=== PATIENT | male | born 1970 | race Caucasian/White ===

== ENCOUNTER 2018-07-22 05:32 | Outpatient (CLI) | payer MEDICARE, MEDICAID ==
[~2018-07-22] VITALS: Ht 170.2 cm; Wt 104.3 kg
[~2018-07-22 05:32] MED LIST: AGM875T PO; AMOX-355 PO; BENA1TAB12; BENAZ; CODE-54; DESV50TA PO; DOXY100C2 PO; ESCI20TA2; HYDR-707 PO; INSU100V6; METFORMIN; METO25TA PO; NEOM10DR6 RIGHT EAR; PROP1TAB77; SMV10T
[2018-07-22] MEDS ORDERED: ASPI-586 PO (10:57)
[2018-07-22] MEDS ORDERED: CYCL10TA9 PO (11:19)
[2018-07-22] MEDS ORDERED: SIMV20TA3 PO (11:19)
[2018-07-22] MEDS ORDERED: METO50TA15 PO (11:19)
[2018-07-22] MEDS ORDERED: PREG100C PO (11:19)
[2018-07-22] MEDS ORDERED: LISI1TAB8 PO (11:19)
[2018-07-22] MEDS ORDERED: HYDR-3820 PO (11:19)
[2018-07-22] MEDS ORDERED: INSU100V6 SQ (11:19)
[2018-07-22] MEDS ORDERED: METF-399 PO (11:19)
[2018-07-22] MEDS ORDERED: NF-ESOM40C PO (11:19)
[2018-07-22] MEDS ORDERED: BUSP10TA95 PO (11:19)
[2018-07-22] MEDS ORDERED: INSU100V16 SQ (11:19)
[2018-07-22] MEDS ORDERED: ALPR1TAB2 PO (11:19)
[2018-07-22] MEDS ORDERED: PANT40TA3 PO (11:19)
== END 2018-07-22 11:20 | disposition home or self-care (01) ==
LOC: PREOP 05:32
PROVIDERS: ATTEND Surgery
DX: Z01.818 Encounter for other preprocedural examination (principal)

== ENCOUNTER 2018-07-28 07:53 | Day surgery (SDC) | payer MEDICARE, MEDICAID ==
[~2018-07-28] VITALS: Ht 170.2 cm; Wt 104.3 kg
[~2018-07-28 07:53] MED LIST changes: +ALPR1TAB2 PO; +ASPI-586 PO; +BUSP10TA95 PO; +CYCL10TA9 PO; +HYDR-3820 PO; +INSU100V16 SQ; +INSU100V6 SQ; +LISI1TAB8 PO; +METF-399 PO; +METO50TA15 PO; +NF-ESOM40C PO; +PANT40TA3 PO; +PREG100C PO; +SIMV20TA3 PO
[2018-07-28] MEDS ORDERED: LACTATED RINGERS 1,000 ML IV ONE (08:04)
[2018-07-28] MEDS ORDERED: LACTATED RINGERS 1,000 ML IV STA (08:11)
[2018-07-28] MEDS ORDERED: HURRICAINE EXT TUBE (BENZOCAINE) XX PRN (08:15)
[2018-07-28 08:31] VITALS: BP 163/98
--- NOTE | 2018-07-28 08:33 | Progress Note-Pre Operative ---
Pre-Operative Progress Note H&P Reviewed The H&P was reviewed, patient examined and no changes noted. Date Seen by Provider: Jul 28, 2018 Time Seen by Provider: 08:32 Date H&P Reviewed: Jul 28, 2018 Time H&P Reviewed: 08:32 Pre-Operative Diagnosis: gerd, blood in stools, family hx colon cancer ANDERSON TELLEZ DO Jul 28, 2018 08:33
[2018-07-28] MEDS ORDERED: HURRICAINE EXT TUBE (BENZOCAINE) ONE (08:37)
[2018-07-28] MEDS ORDERED: MIDAZOLAM 2 MG/2 ML (VERSED) VIAL ONE (08:48)
[2018-07-28] MEDS ORDERED: PROPOFOL INJECTION 50 ML IV ONE (08:48)
[2018-07-28] MEDS ORDERED: proPOfol 200 MG/20 ML (DIPRIVAN) VIAL IV ONE (09:31)
[2018-07-28] MEDS ORDERED: ONDANSETRON 4 MG/2 ML (SDV) Z0FRAN ONE (09:58)
[2018-07-28 10:00] VITALS: BP 159/86
--- NOTE | 2018-07-28 10:05 | Progress Note-Post Operative ---
Post-Operative Progess Note Surgeon (s)/Security Architect (s) Surgeon ANDERSON TELLEZ DO Security Architect: na Pre-Operative Diagnosis gerd, blood in stools, family hx colon cancer Post-Operative Diagnosis small hiatal hernia, food bolus in stomach, colon polyps, possible avm colon Procedure & Operative Findings Date of Procedure 07/28/18 Procedure Performed/Findings esophagogastroscopy c biopsies and colonoscopy c cold biopsy and hot biopsy and hot bx polypectomy x 2 rectal polyps Anesthesia Type per mda Estimated Blood Loss Estimated blood loss (mL): scant Specimens/Packing Specimens Removed antrum distal esoph, ascending colon x 2 and rectal polyps x 2 ANDERSON TELLEZ DO Jul 28, 2018 10:05
--- NOTE | 2018-07-28 10:06 | Discharge Inst-Simple/Standard ---
Discharge Inst-Standard Patient Instructions/Follow Up Plan of Care/Instructions/FU: 2 weeks Shilpi Activity as Tolerated: Yes Discharge Diet: Regular Diet (small frequent meals) ANDERSON TELLEZ DO Jul 28, 2018 10:06
[2018-07-28 10:27] VITALS: BP 159/86
--- NOTE | 2018-07-28 14:10 | Anesthesia-General Post-Op ---
MAC Patient Condition Mental Status/LOC: Same as Preop Cardiovascular: Satisfactory Nausea/Vomiting: Absent Respiratory: Satisfactory Pain: Controlled Complications: Absent Post Op Complications Complications None Follow Up Care/Instructions Patient Instructions None needed. Anesthesiology Discharge Order Discharge Order Patient is doing well, no complaints, stable vital signs, no apparent adverse anesthesia problems. No complications reported per nursing. TRELL BENJAMIN CRNA Jul 28, 2018 14:10
--- NOTE | 2018-07-28 15:39 | OPERATIVE REPORT ---
DATE OF SERVICE: 07/28/2018 PREOPERATIVE DIAGNOSES: Gastroesophageal reflux disease, blood in stools, family history of colon cancer. POSTOPERATIVE DIAGNOSIS: Small hiatal hernia, food bolus in the stomach, colon polyps, possible arteriovenous malformation to the colon. SURGEON: Anderson Dobbins DO. ANESTHESIA: Per MDA. ESTIMATED BLOOD LOSS: Scant. COMPLICATIONS: None. PROCEDURE PERFORMED: Esophagogastroscopy with biopsies and colonoscopy with cold biopsy and hot biopsy of ascending colon and hot biopsy polypectomy x2, rectal polyps. INDICATIONS: The patient is a 47-year-old male with a family history of colon cancer and some blood in the stool and increasing reflux. He understands the risks and benefits of procedure and wished to proceed with procedure. Consent was signed in the chart. DESCRIPTION OF PROCEDURE: The patient was taken to the endoscopy suite, placed in left lateral recumbent position. Timeout was performed. Scope was inserted in mouth, down the esophagus and into the stomach. Food bolus in the stomach was present, which was down the antrum which was unable to be removed go into the duodenum. Copious amounts of irrigation and suction was performed, still unable to move the food bolus at this point. The patient had biopsy antrum was obtained. Scope was retroflexed noting a small hiatal hernia. No other pathology. Scope was returned to its normal position, slowly withdrawn to the distal esophagus, which biopsy of the distal esophagus was obtained. Scope was slowly retracted back to completely remove, noting no other pathology. Digital rectal examination was performed. There were no palpable polyps, masses or ulcerations. Scope was inserted in the rectum and advanced all the way to the cecum with minimal difficulty. Prep was adequate with irrigation and suction. Scope was then slowly retracted back. There were no polyps, masses or ulcerations within the cecum. Within the ascending colon, there were 2 small areas that appeared to be possible AVMs. These were biopsied, one was cold biopsy, but it was very small; the other one, hot biopsy was performed. Scope was continuously slowly retracted back. There were no polyps, mass or ulcerations within the remainder of the ascending colon, transverse colon, descending colon and sigmoid colon. There were two small polyps, which hot biopsy polypectomies were performed. Scope was also retroflexed noting no other pathology. Scope was returned to its normal position, slowly withdrawn until completely removed. RECOMMENDATIONS: The patient will follow up in the office in 2 weeks to discuss pathology results. The patient will also look at medications and see if Carafate may make some other changes in terms of his PPIs. The patient needs repeat colonoscopy in 5 years unless he has persistent bleeding, which would repeat at that time or has any other symptoms relating to the colon, consider repeating colonoscopy. Otherwise, due to family history of colon cancer, we would recommend repeat in 5 years. Job ID: [id number] DocumentID: [id number] Dictated Date: 07/28/2018 10:10:09 Asbestos Hazard Abatement Worker Date: 07/28/2018 15:38:23 Dictated By: ANDERSON DOBBINS DO
== END 2018-07-28 10:30 | disposition home or self-care (01) ==
LOC: ENDO 07:53
PROVIDERS: ATTEND Surgery
DX: K92.1 Melena (principal); K63.5 Polyp of colon; K62.1 Rectal polyp; K21.9 Gastro-esophageal reflux disease without esophagitis; K44.9 Diaphragmatic hernia without obstruction or gangrene; E11.9 Type 2 diabetes mellitus without complications; I10 Essential (primary) hypertension; J44.9 Chronic obstructive pulmonary disease, unspecified; Z80.0 Family history of malignant neoplasm of digestive organs; Z87.891 Personal history of nicotine dependence; Z79.82 Long term (current) use of aspirin; Z79.84 Long term (current) use of oral hypoglycemic drugs; Z79.899 Other long term (current) drug therapy
CPT/HCPCS: 82962; 88305

== ENCOUNTER → 2018-08-25 | Outpatient (CLI) | payer MEDICARE, MEDICAID ==
--- NOTE | 2018-08-25 20:06 | Diagnostic Imaging Report ---
INDICATION: Gastroparesis Patient ingested 1 mCi technetium 99m sulfur colloid labeled to a test meal. Imaging over the abdomen was then performed. Time of half emptying of the test meal was calculated approximately 109 minutes. This is slightly delayed. Normal value is typically 30-90 minutes. IMPRESSION: Slight delay in gastric emptying. Dictated by: Dictated on workstation # [id number]
== END ==
LOC: CARD 06:38
PROVIDERS: ATTEND Surgery
DX: K31.84 Gastroparesis (principal)
CPT/HCPCS: 78264

== ENCOUNTER → 2018-12-27 | Emergency (ER) | payer MEDICARE, MEDICAID ==
[~2018-12-27] VITALS: Ht 170.2 cm; Wt 129.3 kg
[~2018-12-27] MED LIST changes: +AMOX500C2 PO; +AMOXICILLIN 500 MG (POLYMOX) CAP PO STA; +RX-HYDROCODONE/APAP 5/325 MG #4 TAB PK PO PRN
--- NOTE | 2018-12-27 21:03 | ED EENT ---
History of Present Illness General Chief Complaint: Oral/Throat Problems Stated Complaint: JAW PAIN/NO INJ Nursing Triage Note: pt arrived pov with family with c/o mouth pain. pt states he has paperwork from his pcp that states it is medically necessary he has all his teeth pulled. He doesn't have the money to pull them and so he keeps getting recurrent infections. Pt is very irritable. Source: patient Exam Limitations: no limitations History of Present Illness Date Seen by Provider: Dec 27, 2018 Time Seen by Provider: 20:57 Initial Comments To ER with reports of mouth pain for many years. He states that he has a paper from his primary care provider stating that his teeth should be cold but he cannot have this done because he owes [facility] Friday and they won't see them know a dentist will see him. He was helping to have his teeth removed here in the emergency room tonight. Timing/Duration: abrupt Severity: moderate Location: dental Prearrival Treatment: no prearrival treatment Associated Symptoms: denies symptoms Allergies and Home Medications Allergies Coded Allergies: No Known Drug Allergies (Unverified , 07/22/18) Home Medications Alprazolam 1 Mg Tablet, 1 MG PO BID, (Reported) Amoxicillin 500 Mg Capsule, 500 MG PO TID Prescribed by: AUDELIA JOHNSON on 12/27/182101 Aspirin 81 Mg Tablet.dr, 81 MG PO DAILY, (Reported) Buspirone HCl 10 Mg Tablet, 10 MG PO DAILY, (Reported) Cyclobenzaprine HCl 10 Mg Tablet, 10 MG PO PRN, (Reported) Esomeprazole Magnesium 40 Mg Cap, 40 MG PO DAILY, (Reported) Hydrocodone/Acetaminophen 1 Each Tablet, 1 EACH PO TID PRN for PAIN-MODERATE, ( Reported) Insulin Aspart 100 Unit/1 Ml Susp, 30 UNIT SQ AC, (Reported) Insulin Glargine,Hum.rec.anlog 100 Unit/1 Ml Vial, 60 UNIT SQ BID, (Reported) Lisinopril/Hydrochlorothiazide 1 Each Tablet, 1 EACH PO DAILY, (Reported) Metformin HCl 1,000 Mg Tablet, 1,000 MG PO BID, (Reported) Metoprolol Tartrate 50 Mg Tablet, 50 MG PO BID, (Reported) Pantoprazole Sodium 40 Mg Tablet.dr, 40 MG PO DAILY, (Reported) Pregabalin 100 Mg Capsule, 100 MG PO TID, (Reported) Simvastatin 20 Mg Tablet, 20 MG PO HS, (Reported) Patient Home Medication List Home Medication List Reviewed: Yes Review of Systems Review of Systems Constitutional: see HPI Eyes: No Symptoms Reported Ears: No Symptoms Reported Nose: no symptoms reported Mouth: see HPI Throat: no symptoms reported Cardiovascular: no symptoms reported Musculoskeletal: no symptoms reported Past Waihtvl-Apzrus-Lstfsp Hx Patient Social History Former Smoker, Quit: Jul 22, 1997 Recent Foreign Travel: No Contact w/Someone Who Travel: No Recent Infectious Disease Expo: No Recent Hopitalizations: No Immunizations Up To Date Tetanus Booster (TDap): Unknown Date of Pneumonia Vaccine: Jun 21, 2011 Date of Influenza Vaccine: Jun 30, 2017 Seasonal Allergies Seasonal Allergies: Yes Past Medical History Orthopedic COPD Currently Using CPAP: No Currently Using BIPAP: No Hypertension Reproductive Disorders: No Sexually Transmitted Disease: No HIV/AIDS: No Diabetes, Insulin dep Adverse Reaction/Blood Tranf: No (N/A) Physical Exam Vital Signs Vital Signs - First Documented 12/27/18 20:48 Temp 99.0 Pulse 118 Resp 20 Pulse Ox 93 O2 Delivery Room Air Height, Weight, BMI Height: 5'7.00" Weight: 285lbs. 0.0oz. 129.342293yv; 36.0 BMI Method:Stated General Appearance: WD/WN, no apparent distress Eyes: bilateral eye normal inspection, bilateral eye PERRL, bilateral eye EOMI Ears: bilateral ear auricle normal, bilateral ear canal normal, bilateral ear TM normal Mouth/Throat: No maxillary swelling, No tonsillar swelling, No trismus, No uvula swelling; other (multiple carious eroded teeth.) Neck: non-tender, full range of motion Respiratory: no respiratory distress, no accessory muscle use Gastrointestinal: non tender, soft Neurologic/Psychiatric: alert, normal mood/affect, oriented x 3 Skin: normal color, warm/dry Progress/Results/Core Measures Results/Orders My Orders Orders - AUDELIA JOHNSON APRN Rx-Hydrocodone/Apap 5-325 Mg (Rx-Vicodin (12/27/18 21:00) Amoxicillin Capsule (Polymox Capsule) (12/27/18 20:56) Vital Signs/I&O 12/27/18 20:48 Temp 99.0 Pulse 118 Resp 20 B/P (MAP) Pulse Ox 93 O2 Delivery Room Air Departure Communication (Admissions) 2100-offered him pain medication and antibiotics and he states "see I told my sister we should never have come, nothing would get done". He was apparently hoping to have his teeth removed in the emergency room. Impression Primary Impression: Chronic dental pain Disposition: HOME, SELF-CARE Condition: Stable Departure-Patient Inst. Decision time for Depature: 21:02 Referrals: [facility]/ANA LILIA (PCP) Primary Care Physician KESHIA LEDEZMA (Family) Primary Care Physician Patient Instructions: Dental Pain Add. Discharge Instructions: 1. Follow-up with your doctor. Antibiotics and pain medication as directed. All discharge instructions reviewed with patient and/or family. Voiced understanding. Scripts Amoxicillin (Amoxicillin) 500 Mg Capsule 500 MG PO TID, #21 CAP . Prov: AUDELIA JOHNSON APRN 12/27/18 AUDELIA JOHNSON APRN Dec 27, 2018 21:03
[2018-12-27 21:25] VITALS: BP 140/90
== END | disposition home or self-care (01) ==
LOC: EDUNIT# 20:42 → ER 20:43
DX: K08.89 Other specified disorders of teeth and supporting structures (principal); G89.29 Other chronic pain; J44.9 Chronic obstructive pulmonary disease, unspecified; I10 Essential (primary) hypertension; E11.9 Type 2 diabetes mellitus without complications; Z79.82 Long term (current) use of aspirin; Z79.4 Long term (current) use of insulin; Z87.891 Personal history of nicotine dependence
CPT/HCPCS: 99283

== ENCOUNTER 2019-06-18 17:18 | Emergency (ER) | payer MEDICARE, MEDICAID ==
[~2019-06-18] VITALS: Ht 180 cm; Wt 127.0 kg
[~2019-06-18 17:18] MED LIST changes: -AMOXICILLIN 500 MG (POLYMOX) CAP PO STA; -RX-HYDROCODONE/APAP 5/325 MG #4 TAB PK PO PRN
--- NOTE | 2019-06-18 18:26 | ED General ---
General Chief Complaint: General Problems/Pain Stated Complaint: VOMITTING, HIP PAIN Nursing Triage Note: THE PT IS ASSISTED TO THE ROOM BY WHEELCHAIR. NO DISTRESS IS SEEN ON ARRIVAL. LOC IS NORMAL FOR THE PT. FAMILY STATES THAT THE HAS VOMITED SEVERAL TIMES. Nursing Sepsis Screen: No Definite Risk Source of Information: Patient Exam Limitations: No Limitations History of Present Illness Date Seen by Provider: Jun 18, 2019 Time Seen by Provider: 18:24 Initial Comments To ER by sister with reports of sore throat, headache, nausea/vomiting, and pain in the right hip. Symptoms ongoing since this morning, patient himself states that he just slept wrong on his hip and that's why it hurts. He is reportedly bipolar and has not been taking his medications according to his sister at the bedside. Timing/Duration: 1-2 Days Severity: Moderate Associated Systoms: No Cough, No Fever/Chills; Headaches Allergies and Home Medications Allergies Coded Allergies: No Known Drug Allergies (Unverified , 07/22/18) Home Medications Alprazolam 1 Mg Tablet, 1 MG PO BID, (Reported) Amoxicillin 500 Mg Capsule, 500 MG PO TID . Prescribed by: AUDELIA JOHNSON on 12/27/182116 Aspirin 81 Mg Tablet.dr, 81 MG PO DAILY, (Reported) Buspirone HCl 10 Mg Tablet, 10 MG PO DAILY, (Reported) Cyclobenzaprine HCl 10 Mg Tablet, 10 MG PO PRN, (Reported) Esomeprazole Magnesium 40 Mg Cap, 40 MG PO DAILY, (Reported) Hydrocodone/Acetaminophen 1 Each Tablet, 1 EACH PO TID PRN for PAIN-MODERATE, (Reported) Insulin Aspart 100 Unit/1 Ml Susp, 30 UNIT SQ AC, (Reported) Insulin Glargine,Hum.rec.anlog 100 Unit/1 Ml Vial, 60 UNIT SQ BID, (Reported) Lisinopril/Hydrochlorothiazide 1 Each Tablet, 1 EACH PO DAILY, (Reported) Metformin HCl 1,000 Mg Tablet, 1,000 MG PO BID, (Reported) Metoprolol Tartrate 50 Mg Tablet, 50 MG PO BID, (Reported) Pantoprazole Sodium 40 Mg Tablet.dr, 40 MG PO DAILY, (Reported) Pregabalin 100 Mg Capsule, 100 MG PO TID, (Reported) Simvastatin 20 Mg Tablet, 20 MG PO HS, (Reported) Patient Home Medication List Home Medication List Reviewed: Yes Review of Systems Review of Systems Constitutional: see HPI EENTM: see HPI, throat pain Respiratory: no symptoms reported Cardiovascular: no symptoms reported Gastrointestinal: nausea Genitourinary: no symptoms reported Musculoskeletal: no symptoms reported Skin: no symptoms reported Psychiatric/Neurological: No Symptoms Reported Hematologic/Lymphatic: No Symptoms Reported Immunological/Allergic: no symptoms reported Past Ngaotph-Fzwkmh-Llvloz Hx Patient Social History Former Smoker, Quit: Jul 22, 1997 Recent Foreign Travel: No Contact w/Someone Who Travel: No Recent Infectious Disease Expo: No Recent Hopitalizations: No Physical Abuse: No Sexual Abuse: No Mistreated: No Fear: No Immunizations Up To Date Tetanus Booster (TDap): Unknown Date of Pneumonia Vaccine: Jun 21, 2011 Date of Influenza Vaccine: Jun 30, 2017 Seasonal Allergies Seasonal Allergies: No Past Medical History Surgeries: No Orthopedic COPD Currently Using CPAP: No Currently Using BIPAP: No Cardiac: No Hypertension Reproductive Disorders: No Sexually Transmitted Disease: No HIV/AIDS: No Diabetes, Insulin dep Adverse Reaction/Blood Tranf: No (N/A) Physical Exam Vital Signs Vital Signs - First Documented 06/18/19 18:00 Temp 37.8 Pulse 112 Resp 18 B/P (MAP) 144/80 (101) Capillary Refill : Less Than 3 Seconds Height, Weight, BMI Height: 5'7.00" Weight: 285lbs. 0.0oz. 129.289617mm; 39.00 BMI Method:Stated General Appearance: No Apparent Distress, WD/WN, Chronically ill, Obese Eyes: Bilateral Eye Normal Inspection, Bilateral Eye PERRL, Bilateral Eye EOMI HEENT: PERRL/EOMI, TMs Normal, Other (poor dentition throughout the entire mouth) Neck: Full Range of Motion, Normal Inspection Respiratory: Lungs Clear, Normal Breath Sounds, No Accessory Muscle Use, No Respiratory Distress Cardiovascular: Regular Rate, Rhythm, Normal Peripheral Pulses Gastrointestinal: Non Tender, Soft Extremity: Normal Capillary Refill, Normal Inspection Neurologic/Psychiatric: Alert, Oriented x3, No Motor/Sensory Deficits Skin: Normal Color, Warm/Dry Progress/Results/Core Measures Suspected Sepsis Recent Fever Within 48 Hours: No Infection Criteria Present: None New/Unexplained Altered Menta: No Sepsis Screen: No Definite Risk SIRS Temperature: Pulse: 112 Respiratory Rate: 18 Laboratory Tests 06/18/19 18:38: White Blood Count 11.1H Blood Pressure 144 /80 Mean: 101 Laboratory Tests 06/18/19 18:38: Creatinine 1.35H, Platelet Count 228, Total Bilirubin 1.2H Results/Orders Lab Results Laboratory Tests Test 06/18/19 18:38 Range/Units White Blood Count 11.1 H 4.3-11.0 10^3/uL Red Blood Count 3.92 L 4.35-5.85 10^6/uL Hemoglobin 8.7 L 13.3-17.7 G/DL Hematocrit 30 L 40-54 % Mean Corpuscular Volume 76 L 80-99 FL Mean Corpuscular Hemoglobin 22 L 25-34 PG Mean Corpuscular Hemoglobin Concent 29 L 32-36 G/DL Red Cell Distribution Width 19.2 H 10.0-14.5 % Platelet Count 228 130-400 10^3/uL Mean Platelet Volume 10.0 7.4-10.4 FL Neutrophils (%) (Auto) 79 H 42-75 % Lymphocytes (%) (Auto) 11 L 12-44 % Monocytes (%) (Auto) 10 0-12 % Eosinophils (%) (Auto) 0 0-10 % Basophils (%) (Auto) 0 0-10 % Neutrophils # (Auto) 8.7 H 1.8-7.8 X 10^3 Lymphocytes # (Auto) 1.3 1.0-4.0 X 10^3 Monocytes # (Auto) 1.1 H 0.0-1.0 X 10^3 Eosinophils # (Auto) 0.0 0.0-0.3 10^3/uL Basophils # (Auto) 0.0 0.0-0.1 10^3/uL Urine Color YELLOW Urine Clarity CLEAR Urine pH 6.5 5-9 Urine Specific [place] 1.010 L 1.016-1.022 Urine Protein 2+ H NEGATIVE Urine Glucose (UA) 4+ H NEGATIVE Urine Ketones 2+ H NEGATIVE Urine Nitrite NEGATIVE NEGATIVE Urine Bilirubin NEGATIVE NEGATIVE Urine Urobilinogen NORMAL NORMAL MG/DL Urine Leukocyte Esterase NEGATIVE NEGATIVE Urine RBC (Auto) NEGATIVE NEGATIVE Urine RBC NONE /HPF Urine WBC NONE /HPF Urine Squamous Epithelial Cells RARE /HPF Urine Crystals NONE /LPF Urine Bacteria NEGATIVE /HPF Urine Casts NONE /LPF Urine Mucus NEGATIVE /LPF Urine Culture Indicated NO Sodium Level 134 L 135-145 MMOL/L Potassium Level 3.6 3.6-5.0 MMOL/L Chloride Level 92 L 98-107 MMOL/L Carbon Dioxide Level 31 21-32 MMOL/L Anion Gap 11 5-14 MMOL/L Blood Urea Nitrogen 13 7-18 MG/DL Creatinine 1.35 H 0.60-1.30 MG/DL Estimat Glomerular Filtration Rate 57 BUN/Creatinine Ratio 10 Glucose Level 338 H 70-105 MG/DL Calcium Level 9.4 8.5-10.1 MG/DL Corrected Calcium 9.4 8.5-10.1 MG/DL Total Bilirubin 1.2 H 0.1-1.0 MG/DL Aspartate Amino Transf (AST/SGOT) 22 5-34 U/L Alanine Aminotransferase (ALT/SGPT) 19 0-55 U/L Alkaline Phosphatase 76 40-136 U/L Total Protein 7.6 6.4-8.2 GM/DL Albumin 4.0 3.2-4.5 GM/DL Group A Streptococcus Screen NEGATIVE NEGATIVE Micro Results Microbiology 06/18/19 Influenza Types A,B Antigen (MAC) - Final, Complete My Orders Orders - AUDELIA JOHNSON COMMUNITY OUTREACH SPECIALIST Cbc With Automated Diff (06/18/19 18:21) Comprehensive Metabolic Panel (06/18/19 18:21) Ua Culture If Indicated (06/18/19 18:21) Rapid Strep A Screen (06/18/19 18:21) Ed Iv/Invasive Line Start (06/18/19 18:21) Influenza A And B Antigens (06/18/19 18:21) Ondansetron Injection (Zofran Injectio (06/18/19 18:30) Ns Iv 1000 Ml (Sodium Chloride 0.9%) (06/18/19 18:30) Ketorolac Injection (Toradol Injection) (06/18/19 18:30) Chest 1 View, Ap/Pa Only (06/18/19 18:42) Medications Given in ED Current Medications Medications Dose Ordered Sig/Ghazala Route Start Time Stop Time Status Last Admin Dose Admin Ketorolac Tromethamine 15 mg ONCE ONCE IVP 06/18/19 18:30 06/18/19 18:31 DC 06/18/19 18:54 15 MG Ondansetron HCl 8 mg ONCE ONCE IVP 06/18/19 18:30 06/18/19 18:31 DC 06/18/19 18:51 8 MG Vital Signs/I&O 06/18/19 18:00 Temp 37.8 Pulse 112 Resp 18 B/P (MAP) 144/80 (101) Capillary Refill : Less Than 3 Seconds Blood Pressure Mean: 101 Departure Impression Primary Impression: Headache Qualified Codes: R51 - Headache Additional Impression: Sore throat Disposition: HOME, SELF-CARE Condition: Stable Departure-Patient Inst. Decision time for Depature: 19:40 Referrals: [facility]/ANA LILIA (PCP) Primary Care Physician KESHIA LEDEZMA (Family) Primary Care Physician Patient Instructions: NO INSTRUCTIONS GIVEN Add. Discharge Instructions: 1. Return to ER for any concerns 2. Follow-up with your doctor next week 3. All discharge instructions reviewed with patient and/or family. Voiced understanding. AUDELIA JOHNSON COMMUNITY OUTREACH SPECIALIST Jun 18, 2019 18:26
[2019-06-18] MEDS ORDERED: NS IV 1000 ML 1,000 ML IV SCH (18:30)
[2019-06-18] MEDS ORDERED: KETOROLAC 30 MG/ML VIAL IVP ONE (18:30)
[2019-06-18] MEDS ORDERED: ONDANSETRON 4 MG/2 ML (SDV) Z0FRAN IVP ONE (18:30)
[2019-06-18 18:54] LABS: BASOPHILS % (AUTO) 0 % (0-10); EOSINOPHILS % (AUTO) 0 % (0-10); HEMATOCRIT 30 % (40-54); HEMOGLOBIN 8.7 G/DL (13.3-17.7); LYMPHOCYTES # (AUTO) 1.3 X 10^3 (1.0-4.0); LYMPHOCYTES % (AUTO) 11 % (12-44); MEAN CORPUSCULAR HEMOGLOBIN 22 PG (25-34); MEAN CORPUSCULAR HGB CONC 29 G/DL (32-36); MEAN CORPUSCULAR VOLUME 76 FL (80-99); MONOCYTES # (AUTO) 1.1 X 10^3 (0.0-1.0); MONOCYTES % (AUTO) 10 % (0-12); NEUTROPHILS # (AUTO) 8.7 X 10^3 (1.8-7.8); NEUTROPHILS % (AUTO) 79 % (42-75); PLATELET COUNT 228 10^3/uL (130-400); RED CELL DISTRIBUTION WIDTH 19.2 % (10.0-14.5); WHITE BLOOD COUNT 11.1 10^3/uL (4.3-11.0)
[2019-06-18 18:56] LABS: BILIRUBIN,URINE NEGATIVE (NEGATIVE); CLARITY,URINE CLEAR; COLOR,URINE YELLOW; GLUCOSE, URINE (UA) 4+ (NEGATIVE); KETONES,URINE 2+ (NEGATIVE); LEUKOCYTE ESTERASE ,URINE NEGATIVE (NEGATIVE); NITRITE,URINE NEGATIVE (NEGATIVE); PH,URINE 6.5 (5-9); PROTEIN,URINE 2+ (NEGATIVE); UROBILINOGEN,URINE NORMAL (NORMAL)
[2019-06-18 19:01] LABS: BACTERIA,URINE NEGATIVE /HPF; SQUAMOUS EPITHELIAL CELL,UR RARE /HPF
[2019-06-18 19:12] LABS: BILIRUBIN,TOTAL 1.2 MG/DL (0.1-1.0); CALCIUM 9.4 MG/DL (8.5-10.1); CREATININE SERUM 1.35 MG/DL (0.60-1.30); POTASSIUM 3.6 MMOL/L (3.6-5.0); TOTAL PROTEIN 7.6 GM/DL (6.4-8.2)
--- NOTE | 2019-06-18 19:41 | Diagnostic Imaging Report ---
CHEST 1 VIEW, AP/PA ONLY INDICATION: Nausea and vomiting. COMPARISON: 12/16/2011. FINDINGS: Cardiac silhouette is enlarged, which may be accentuated due to portable technique. Visualized lungs are clear. Posterior lower lobes are poorly evaluated. No pleural effusion or pneumothorax. IMPRESSION: 1. Enlargement of the cardiac silhouette could be accentuated due to portable technique; however, underlying cardiomegaly or pericardial effusion could be present in the appropriate setting. 2. Visualized lungs are clear. Dictated by: Dictated on workstation # [id number]
[2019-06-18 20:12] VITALS: BP 128/80
== END 2019-06-18 20:14 | disposition home or self-care (01) ==
LOC: EDUNIT# 17:18 → ER 17:20
DX: R51 Headache (principal); J02.9 Acute pharyngitis, unspecified; I10 Essential (primary) hypertension; E11.9 Type 2 diabetes mellitus without complications; J44.9 Chronic obstructive pulmonary disease, unspecified; F31.9 Bipolar disorder, unspecified; Z79.82 Long term (current) use of aspirin; Z79.4 Long term (current) use of insulin; Z87.891 Personal history of nicotine dependence; Z91.14 Patient's other noncompliance with medication regimen
CPT/HCPCS: 36415; 71045; 80053; 81000; 85025; 87430; 87804

== ENCOUNTER 2019-10-06 12:11 | Emergency (ER) | payer MEDICARE, MEDICAID ==
[~2019-10-06] VITALS: Ht 170 cm; Wt 122.7 kg
[~2019-10-06 12:11] MED LIST changes: +LISI1TAB25 PO; -LISI1TAB8 PO; +SIMV20TA26 PO; -SIMV20TA3 PO
--- NOTE | 2019-10-06 12:41 | ED General ---
General Chief Complaint: General Problems/Pain Stated Complaint: FOOT PAIN, SWELLING PAIN Nursing Triage Note: PT STATES HE FELL IN A HOLE `1 YEAR AGO AND HAS BEEN HAVING BILAT FOOT PAIN SINCE. ALSO COMPLAINS OF PAIN LEFT SHOULDER DUE TO ARTHRITIS. ASKED HIM WHAT MADE THIS WORSE TODAY ET HE SAYS ITS NOT REALLY HURTING TODAY BUT WAS IN [place] AND THOUGHT HE WOULD HAVE IT CHECKED OUT. Nursing Sepsis Screen: No Definite Risk Source of Information: Patient Exam Limitations: No Limitations History of Present Illness Date Seen by Provider: Oct 06, 2019 Time Seen by Provider: 12:42 Initial Comments to ER with reports of bilateral foot pain and left shoulder pain. He tripped in a hole 1 year ago and has been having pain since then. He's got pain in his left shoulder due to arthritis. He has not seen primary care for this. He was in [place] running errands today and decided to come to the emergency room to have this checked out. Severity: Moderate Associated Systoms: Denies Symptoms Allergies and Home Medications Allergies Coded Allergies: No Known Drug Allergies (Unverified , 07/22/18) Home Medications Alprazolam 1 Mg Tablet, 1 MG PO BID, (Reported) Amoxicillin 500 Mg Capsule, 500 MG PO TID . Prescribed by: AUDELIA JOHNSON on 12/27/182116 Aspirin 81 Mg Tablet., 81 MG PO DAILY, (Reported) Buspirone HCl 10 Mg Tablet, 10 MG PO DAILY, (Reported) Cyclobenzaprine HCl 10 Mg Tablet, 10 MG PO PRN, (Reported) Esomeprazole Magnesium 40 Mg Cap, 40 MG PO DAILY, (Reported) Hydrocodone/Acetaminophen 1 Each Tablet, 1 EACH PO TID PRN for PAIN-MODERATE, (Reported) Insulin Aspart 100 Unit/1 Ml Susp, 30 UNIT SQ AC, (Reported) Insulin Glargine,Hum.rec.anlog 100 Unit/1 Ml Vial, 60 UNIT SQ BID, (Reported) Lisinopril/Hydrochlorothiazide 1 Each Tablet, 1 EACH PO DAILY, (Reported) Metformin HCl 1,000 Mg Tablet, 1,000 MG PO BID, (Reported) Metoprolol Tartrate 50 Mg Tablet, 50 MG PO BID, (Reported) Pantoprazole Sodium 40 Mg Tablet.dr, 40 MG PO DAILY, (Reported) Pregabalin 100 Mg Capsule, 100 MG PO TID, (Reported) Simvastatin 20 Mg Tablet, 20 MG PO HS, (Reported) Patient Home Medication List Home Medication List Reviewed: Yes Review of Systems Review of Systems Constitutional: see HPI; No chills, No fever EENTM: see HPI Respiratory: no symptoms reported Cardiovascular: no symptoms reported Genitourinary: no symptoms reported Musculoskeletal: see HPI Skin: no symptoms reported Psychiatric/Neurological: No Symptoms Reported Hematologic/Lymphatic: No Symptoms Reported Past Yndvwbl-Wjkbwu-Dfcgdq Hx Patient Social History Alcohol Use: Rarely Uses Recreational Drug Use: No Smoking Status: Former Smoker Former Smoker, Quit: Jul 22, 1997 Recent Foreign Travel: No Contact w/Someone Who Travel: No Recent Infectious Disease Expo: No Recent Hopitalizations: No Immunizations Up To Date Tetanus Booster (TDap): Unknown Date of Pneumonia Vaccine: Jun 21, 2011 Date of Influenza Vaccine: Jun 30, 2017 Seasonal Allergies Seasonal Allergies: No Past Medical History Surgeries: No Orthopedic Respiratory: Yes COPD Currently Using CPAP: No Currently Using BIPAP: No Cardiac: No Hypertension Neurological: Yes ( "DIABETIC SEIZURES ") Reproductive Disorders: No Sexually Transmitted Disease: No HIV/AIDS: No Gastrointestinal: No Musculoskeletal: No Endocrine: Yes Diabetes, Insulin dep Cancer: No Psychosocial: No Integumentary: No Blood Disorders: No Adverse Reaction/Blood Tranf: No (N/A) Physical Exam Vital Signs Vital Signs - First Documented 10/06/19 12:25 Temp 37.0 Pulse 89 Resp 16 Pulse Ox 96 O2 Delivery Room Air Capillary Refill : Less Than 3 Seconds Height, Weight, BMI Height: 5'7.00" Weight: 285lbs. 0.0oz. 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 The foot is without erythema or ecchymosis or swelling) Neurologic/Psychiatric: Alert, Oriented x3 Skin: Normal Color, Warm/Dry Progress/Results/Core Measures Suspected Sepsis Recent Fever Within 48 Hours: No Infection Criteria Present: None New/Unexplained Altered Menta: No Sepsis Screen: No Definite Risk SIRS Temperature: Pulse: 89 Respiratory Rate: 16 Blood Pressure / Mean: Results/Orders Vital Signs/I&O 10/06/19 12:25 Temp 37.0 Pulse 89 Resp 16 B/P (MAP) Pulse Ox 96 O2 Delivery Room Air Capillary Refill : Less Than 3 Seconds Departure Impression Primary Impression: Chronic pain Disposition: 01 HOME, SELF-CARE Condition: Stable Departure-Patient Inst. Decision time for Depature: 12:40 Referrals: [facility]/Tammy (PCP) Primary Care Physician KESHIA LEDEZMA (Family) Primary Care Physician Patient Instructions: Chronic Pain Add. Discharge Instructions: 1. Call Georges LEDEZMA for an appointment to be seen in for any other non- emergencies. All discharge instructions reviewed with patient and/or family. Voiced understanding. AUDELIA JOHNSON PAN PUSHER Oct 06, 2019 12:41
[2019-10-06 12:44] VITALS: BP 179/97
== END 2019-10-06 12:44 | disposition home or self-care (01) ==
LOC: EDUNIT# 12:11 → ER 12:13
DX: G89.29 Other chronic pain (principal); M79.671 Pain in right foot; M79.672 Pain in left foot; M19.012 Primary osteoarthritis, left shoulder; J44.9 Chronic obstructive pulmonary disease, unspecified; I10 Essential (primary) hypertension; E11.9 Type 2 diabetes mellitus without complications; Z79.82 Long term (current) use of aspirin; Z87.828 Personal history of other (healed) physical injury and trauma; Z79.4 Long term (current) use of insulin; Z87.891 Personal history of nicotine dependence
CPT/HCPCS: 99281

== ENCOUNTER 2020-05-30 05:49 | Outpatient (CLI) | payer MEDICARE, MEDICAID ==
[~2020-05-30] VITALS: Ht 170.2 cm; Wt 122.7 kg
[~2020-05-30 05:49] MED LIST changes: +ACHYD1T PO; -HYDR-3820 PO; -LISI1TAB25 PO; +LISI1TAB46 PO
[2020-05-30] MEDS ORDERED: DULA1.5P2 SQ (15:20)
[2020-05-30] MEDS ORDERED: METO5TAB2 PO (15:20)
[2020-05-30] MEDS ORDERED: VORT10TA PO (15:20)
[2020-05-30] MEDS ORDERED: TOPI25TA10 PO (15:20)
== END 2020-05-30 15:27 ==
LOC: PREOP 05:49
PROVIDERS: ATTEND Surgery
DX: Z01.818 Encounter for other preprocedural examination (principal)

== ENCOUNTER 2020-06-01 08:36 | Day surgery (SDC) | payer MEDICARE, MEDICAID ==
[~2020-06-01] VITALS: Ht 170.2 cm; Wt 122.7 kg
[2020-06-01] VITALS (10 sets, daily range): BP systolic 96–146; BP diastolic 54–81
[~2020-06-01 08:36] MED LIST changes: +DULA1.5P2 SQ; +METO5TAB2 PO; +TOPI25TA10 PO; +VORT10TA PO
[2020-06-01] MEDS ORDERED: BUP/EPI 0.25% 1:200,000 (MARCAINE) 30 ML VIAL ONE (08:39)
[2020-06-01] MEDS ORDERED: LACTATED RINGERS 1,000 ML IV PRN ×2 (08:46→09:08)
--- NOTE | 2020-06-01 08:49 | Progress Note-Pre Operative ---
Pre-Operative Progress Note H&P Reviewed The H&P was reviewed, patient examined and no changes noted. Date Seen by Provider: Jun 01, 2020 Time Seen by Provider: 08:47 Date H&P Reviewed: Jun 01, 2020 Time H&P Reviewed: 08:40 Pre-Operative Diagnosis: symptomatic lipoma posterior neck GURJIT MARTEL APRN Jun 01, 2020 08:49
--- NOTE | 2020-06-01 08:57 | Discharge Inst-Surgical ---
D/C Lap Instructions-CLEVEO Reconcile Patient Problems Problems Reviewed?: Yes New, Converted, or Re-Newed RX: Other (Pt already on pain medication) Follow Up Appt in 2 weeks Activity as tolerated No driving for 24 hours No driving while on pain medications Incentive Spirometry use every 2 hours while awake Regular Diet Symptoms to Report: Fever over 101 degree F, Nausea/Vomiting Infection Signs and Symptoms to report: Increased redness, Foul odor of wound, Increased drainage Bathing instructions: May shower Operative Area Clean/Dry; Keep incision clean/dry If any problems/questions: Contact your physician or go to Emergency Room GURJIT MARTEL APRN Jun 01, 2020 08:57
[2020-06-01] MEDS ORDERED: ceFAZolin 2 GM IV Premixed 50 ML IV ONE (09:00)
[2020-06-01] MEDS ORDERED: KETOROLAC 15 MG/ML VIAL IVP PRN (09:00)
[2020-06-01] MEDS ORDERED: IBUPROFEN 800 MG (MOTRIN) TAB PO PRN (09:00)
[2020-06-01] MEDS ORDERED: ACETAMINOPHEN 500 MG TAB (TYLENOL) PO PRN (09:00)
[2020-06-01] MEDS ORDERED: ONDANSETRON 4 MG/2 ML (SDV) Z0FRAN IVP PRN ×2 (09:00→11:15)
[2020-06-01] MEDS ORDERED: ONDANSETRON 4 MG/2 ML (SDV) Z0FRAN ONE ×2 (09:10→09:13)
[2020-06-01] MEDS ORDERED: ceFAZolin 2 GM IV Premixed 50 ML ONE (09:11)
[2020-06-01] MEDS ORDERED: FAMOTIDINE 20MG/2ML IV (PEPCID) ONE (09:12)
[2020-06-01] MEDS ORDERED: MIDAZOLAM 2 MG/2 ML (VERSED) VIAL ONE (09:13)
[2020-06-01] MEDS ORDERED: SEVOFLURANE (ULTANE) 15 ML INHAL SOLN ONE ×5 (09:13→10:42)
[2020-06-01] MEDS ORDERED: fentaNYL INJECTION 100 MCG/2 ML AMP ONE (09:13)
[2020-06-01] MEDS ORDERED: proPOfol 200 MG/20 ML (DIPRIVAN) VIAL IV ONE (09:13)
[2020-06-01] MEDS ORDERED: LIDOCAINE PF 2% 5 ML (XYLOCAINE) VIAL ONE (09:13)
[2020-06-01] MEDS ORDERED: FAMOTIDINE 20MG/2ML IV (PEPCID) IV ONE (09:15)
[2020-06-01] MEDS ORDERED: ONDANSETRON 4 MG/2 ML (SDV) Z0FRAN IV ONE (09:15)
[2020-06-01] MEDS ORDERED: NEOSTIGMINE 3 MG/3 ML VIAL ONE (10:11)
[2020-06-01] MEDS ORDERED: GLYCOPYRROLATE 0.2 MG/ML (ROBINUL) 2 ML VIAL ONE (10:11)
--- NOTE | 2020-06-01 10:28 | Progress Note-Post Operative ---
Post-Operative Progess Note Surgeon (s)/Gauge And Weigh Machine Operator (s) Surgeon KATELYN MAE MD Gauge And Weigh Machine Operator: jaren cohen X RAY PHYSICIAN Pre-Operative Diagnosis symptomatic lipoma posterior neck Post-Operative Diagnosis same. subfascial [id number] Procedure & Operative Findings Date of Procedure 06/01/20 Procedure Performed/Findings excision subfascial lipoma neck [id number] Anesthesia Type get Estimated Blood Loss Estimated blood loss (mL): minimal Specimens/Packing Specimens Removed lipoma neck KATELYN MAE MD Jun 01, 2020 10:28
[2020-06-01] MEDS ORDERED: ROCURONIUM 10 MG/ML 5 ML SYRINGE IV ONE (10:41)
--- NOTE | 2020-06-01 11:08 | Anesthesia-General Post-Op ---
General Patient Condition Mental Status/LOC: Same as Preop Cardiovascular: Satisfactory Nausea/Vomiting: Absent Respiratory: Satisfactory Pain: Controlled Complications: Absent Post Op Complications Complications None Follow Up Care/Instructions Patient Instructions None needed. Anesthesia/Patient Condition Patient Condition Patient is doing well, no complaints, stable vital signs, no apparent adverse anesthesia problems. No complications reported per nursing. ESTEBAN TEAGUE CRNA Jun 01, 2020 11:08
[2020-06-01] MEDS ORDERED: morphine INJ 10 MG/ML 1ML (SYR OR VIAL) IVP ONE (11:15)
[2020-06-01] MEDS ORDERED: CEPH-507 PO (13:01)
--- NOTE | 2020-06-01 15:17 | OPERATIVE REPORT ---
DATE OF SERVICE: 06/01/2020 ATTENDING GLAZIER APPRENTICE: Georges Lilly APRN PREOPERATIVE DIAGNOSIS: Symptomatic lipoma at the base of the neck. POSTOPERATIVE DIAGNOSES: Symptomatic lipoma at the base of the neck with a lipoma subfascial and 12 x 8 x 4 cm in size. PROCEDURE: Excision subfascial lipoma base of the neck, 12 x 8 x 4 cm in size. SURGEON: Darrell Mae MD AIX ADMINISTRATOR: Vlad Ley APRN. ANESTHESIA: General endotracheal. ESTIMATED BLOOD LOSS: 75 mL. DISPOSITION: The patient tolerated the procedure well. INDICATIONS: The patient is a 49-year-old male referred over to us for symptomatic lesion of the base of the neck. He reports that this has been present for greater than 20 years; however, has grown larger in size and cause referred pain to his neck, head as well as extremities. Upon examination, he was found to have a large lipoma at the base of the neck that was not easily movable and more fixed and generally the type of the lipoma was identified at the base of the neck. DESCRIPTION OF PROCEDURE: The patient was brought to the operating room, laid supine on the table. After adequate IV pain and sedative medications and general endotracheal intubation, the patient was then placed in left lateral decubitus position and the neck and back were prepped and draped in standard surgical fashion. A 0.25% Marcaine with epinephrine was then used to anesthetize overlying skin as well as surrounding the lesion. A crescent-shaped skin incision was then made using a 15 blade. The skin was thick overlying the lesion, which likely indicated a chronic cellulitis overlying a lipoma, which after further inspection was subfascial. We then proceeded with excision of the lesion starting at the subdermal level using electrocautery. We first proceeded superiorly until we were at the fascia and the fascia opened using electrocautery. We then proceeded with inferior dissection in a similar manner, creating skin flaps simultaneously. We then proceeded with left to right lateral dissection using electrocautery overlying the trapezius muscle. Excising the entirety of the mass with visualization of good hemostasis. The lesion was measured out 12 x 8 x 4 cm. The wound was then irrigated with visualization of good hemostasis. The subcutaneous tissue was then reapproximated using 3-0 Vicryl interrupted sutures in layers and the skin was closed using 4-0 Monocryl running subcuticular suture. Wound was then cleaned and covered with Dermabond. The patient tolerated the procedure well. We will start IV and oral pain medication as well as a clear liquid diet. Once he is tolerating clears, has good pain control with oral pain medications, ambulating well, we will discharge him home. We will also start him on antibiotics for 7 days as well. Job ID: [id number] DocumentID: [id number] Dictated Date: 06/01/2020 10:36:46 Wire Coiler Machine Operator Date: 06/01/2020 15:16:51 Dictated By: DARRELL MAE MD
== END 2020-06-01 12:45 | disposition home or self-care (01) ==
LOC: SDC 08:36
PROVIDERS: ATTEND Surgery
DX: D17.0 Benign lipomatous neoplasm of skin and subcutaneous tissue of head, face and neck (principal); I10 Essential (primary) hypertension; E11.40 Type 2 diabetes mellitus with diabetic neuropathy, unspecified; E78.00 Pure hypercholesterolemia, unspecified; J44.9 Chronic obstructive pulmonary disease, unspecified; G40.909 Epilepsy, unspecified, not intractable, without status epilepticus; F41.9 Anxiety disorder, unspecified; F32.9 Major depressive disorder, single episode, unspecified; Z79.4 Long term (current) use of insulin; Z79.899 Other long term (current) drug therapy; Z87.891 Personal history of nicotine dependence; Z11.2 Encounter for screening for other bacterial diseases
CPT/HCPCS: 82962; 87081

== ENCOUNTER 2020-06-12 00:42 | Emergency (ER) | payer MEDICARE, MEDICAID ==
[~2020-06-12] VITALS: Ht 170 cm; Wt 125.6 kg
[~2020-06-12 00:42] MED LIST changes: +CEPH-507 PO; -PANT40TA3 PO; +PANT40TA52 PO
[2020-06-12] MEDS ORDERED: NS IV 1000 ML 1,000 ML IV ONE (01:03)
--- NOTE | 2020-06-12 01:20 | ED Integumentary General ---
General Chief Complaint: Skin/Wound Problems Stated Complaint: S/P NECK SX INCISION SITE DRAINAGE Nursing Triage Note: INCIDIONAL DRAINAGE Source: patient Exam Limitations: no limitations History of Present Illness Date Seen by Provider: Jun 12, 2020 Time Seen by Provider: 00:55 Initial Comments Here with report of wound to his posterior neck that is draining clear fluid. States it feels like there is a sunburn there. Had lipectomy done to that area on 06/01/[address] Resendiz. Patient worried that he may need antibiotics. Taking his meds as directed. He is not currently on antibiotics. Denies foul-smelling drainage or fever. Timing/Duration: other (2-3 days) Severity: mild, moderate Location: torso (posterior neck) Possible Cause: other (postoperative) Associated Symptoms: No fever, No rash Allergies and Home Medications Allergies Coded Allergies: No Known Drug Allergies (Unverified , 07/22/18) Home Medications Alprazolam 1 Mg Tablet, 1 MG PO BID, (Reported) Cephalexin 500 Mg Capsule, 500 MG PO TID Prescribed by: RAJIV CADENA on 06/01/20 1301 Cyclobenzaprine HCl 10 Mg Tablet, 10 MG PO TID, (Reported) Dulaglutide 1.5 Mg/0.5 Ml Pen.injctr, 1.5 MG SQ WEEK, (Reported) Esomeprazole Magnesium 40 Mg Cap, 40 MG PO DAILY, (Reported) Hydrocodone Bit/Acetaminophen 1 Each Tablet, 1 EACH PO TID PRN for PAIN- MODERATE, (Reported) Insulin Aspart 100 Unit/1 Ml Susp, 60 UNIT SQ TIDAC, (Reported) Lisinopril/Hydrochlorothiazide 1 Each Tablet, 2 EACH PO DAILY, (Reported) Metoclopramide HCl 5 Mg Tablet, 5 MG PO TIDAC, (Reported) Metoprolol Tartrate 50 Mg Tablet, 50 MG PO BID, (Reported) Pregabalin 100 Mg Capsule, 100 MG PO TID, (Reported) Simvastatin 20 Mg Tablet, 20 MG PO HS, (Reported) Topiramate 25 Mg Tablet, 25 MG PO BID, (Reported) Vortioxetine Hydrobromide 10 Mg Tablet, 10 MG PO DAILY, (Reported) Patient Home Medication List Home Medication List Reviewed: Yes Review of Systems Review of Systems Constitutional: see HPI; No chills, No fever EENTM: No nose congestion, No throat pain Respiratory: No cough, No short of breath Cardiovascular: no symptoms reported Gastrointestinal: No abdominal pain, No nausea, No vomiting Genitourinary: no symptoms reported Musculoskeletal: No back pain; muscle pain Skin: change in color, lesions Psychiatric/Neurological: No Symptoms Reported Past Vfscxmw-Mnblox-Hdmkpe Hx Past Med/Social Hx: Reviewed Nursing Past Med/Soc Hx Patient Social History Alcohol Use: Denies Use Recreational Drug Use: No Drug of Choice: DENIES Smoking Status: Former Smoker Former Smoker, Quit: Jul 22, 1997 Recent Foreign Travel: No Contact w/Someone Who Travel: No Recent Infectious Disease Expo: No Recent Hopitalizations: No Immunizations Up To Date Tetanus Booster (TDap): Unknown Date of Pneumonia Vaccine: Jun 21, 2011 Date of Influenza Vaccine: Jun 30, 2017 Seasonal Allergies Seasonal Allergies: No Past Medical History Surgeries: Yes Orthopedic Respiratory: Yes COPD Currently Using CPAP: No Currently Using BIPAP: No Cardiac: Yes Hypertension Neurological: No Reproductive Disorders: No Sexually Transmitted Disease: No HIV/AIDS: No Genitourinary: No Gastrointestinal: No Musculoskeletal: No Endocrine: Yes Diabetes, Insulin dep HEENT: No Cancer: No Psychosocial: No Integumentary: No Blood Disorders: No Adverse Reaction/Blood Tranf: No (N/A) Family Medical History Reviewed Nursing Family Hx Physical Exam Vital Signs Vital Signs - First Documented 06/12/20 00:51 Temp 36.5 Pulse 110 Resp 20 B/P (MAP) 160/80 (106) Pulse Ox 97 O2 Delivery Room Air Capillary Refill : Less Than 3 Seconds General Appearance: WD/WN, no apparent distress, obese Neck: full range of motion, supple, other (postoperative Wound posterior neck at the base approximately 8 cm with serous drainage. Mild surrounding erythema. Mildly tender to touch.) Cardiovascular: no murmur, tachycardia Respiratory: lungs clear, normal breath sounds Gastrointestinal: non tender, soft Back: normal inspection, no CVA tenderness, no vertebral tenderness Neurologic/Psychiatric: alert, oriented x 3 Skin: normal color, warm/dry Skin Problem Character: erythema, lesion, tenderness, other (postoperative wo und as described above) Progress/Results/Core Measures Results/Orders Lab Results Laboratory Tests Test 06/12/20 01:06 Range/Units White Blood Count 10.4 4.3-11.0 10^3/uL Red Blood Count 3.91 L 4.35-5.85 10^6/uL Hemoglobin 10.8 L 13.3-17.7 G/DL Hematocrit 33 L 40-54 % Mean Corpuscular Volume 85 80-99 FL Mean Corpuscular Hemoglobin 28 25-34 PG Mean Corpuscular Hemoglobin Concent 32 32-36 G/DL Red Cell Distribution Width 16.1 H 10.0-14.5 % Platelet Count 177 130-400 10^3/uL Mean Platelet Volume 9.4 7.4-10.4 FL Neutrophils (%) (Auto) 81 H 42-75 % Lymphocytes (%) (Auto) 11 L 12-44 % Monocytes (%) (Auto) 7 0-12 % Eosinophils (%) (Auto) 1 0-10 % Basophils (%) (Auto) 0 0-10 % Neutrophils # (Auto) 8.4 H 1.8-7.8 X 10^3 Lymphocytes # (Auto) 1.2 1.0-4.0 X 10^3 Monocytes # (Auto) 0.7 0.0-1.0 X 10^3 Eosinophils # (Auto) 0.1 0.0-0.3 10^3/uL Basophils # (Auto) 0.0 0.0-0.1 10^3/uL Erythrocyte Sedimentation Rate 68 H 0-15 MM/HR Sodium Level 140 135-145 MMOL/L Potassium Level 3.4 L 3.6-5.0 MMOL/L Chloride Level 101 98-107 MMOL/L Carbon Dioxide Level 27 21-32 MMOL/L Anion Gap 12 5-14 MMOL/L Blood Urea Nitrogen 14 7-18 MG/DL Creatinine 1.11 0.60-1.30 MG/DL Estimat Glomerular Filtration Rate > 60 BUN/Creatinine Ratio 13 Glucose Level 122 H 70-105 MG/DL Calcium Level 9.6 8.5-10.1 MG/DL Corrected Calcium 9.4 8.5-10.1 MG/DL Total Bilirubin 0.5 0.1-1.0 MG/DL Aspartate Amino Transf (AST/SGOT) 25 5-34 U/L Alanine Aminotransferase (ALT/SGPT) 19 0-55 U/L Alkaline Phosphatase 69 40-136 U/L C-Reactive Protein High Sensitivity 3.23 H 0.00-0.50 MG/DL Total Protein 7.6 6.4-8.2 GM/DL Albumin 4.2 3.2-4.5 GM/DL My Orders Orders - SMITHA OTERO MD Cbc With Automated Diff (06/12/20 01:03) Comprehensive Metabolic Panel (06/12/20 01:03) Hs C Reactive Protein (06/12/20 01:03) Erythrocyte Sedimentation Rate (06/12/20 01:03) Ed Iv/Invasive Line Start (06/12/20 01:03) Ns Iv 1000 Ml (Sodium Chloride 0.9%) (06/12/20 01:03) Wound Culture (06/12/20 02:06) Clindamycin Capsule (Cleocin Capsule) (06/12/20 02:08) Medications Given in ED Current Medications Medications Dose Ordered Sig/Ghazala Route Start Time Stop Time Status Last Admin Dose Admin Sodium Chloride 1,000 ml @ 0 mls/hr Q0M ONCE IV 06/12/20 01:03 06/12/20 01:05 DC 06/12/20 01:13 0 MLS/HR Vital Signs/I&O 06/12/20 00:51 Temp 36.5 Pulse 110 Resp 20 B/P (MAP) 160/80 (106) Pulse Ox 97 O2 Delivery Room Air Blood Pressure Mean: 106 Progress Progress Note : Progress Note Seen and evaluated. IV and labs ordered. Normal saline 1 L bolus due to tachycardia. Monitor patient. 0220: Doing better. Labs reviewed. There is some concern for infection. I did discuss the case with Dr. Dobbins on-call for surgery. Wound culture obtained. Clindamycin 450 mg by mouth. We will continue clindamycin outpatient and instructed patient to follow-up with Dr. Resendiz this week. I did tell the patient to call Dr. Resendiz's office in the morning for recheck. I will send a copy of the chart to Dr. Resendiz as well. Discharged home with return precautions. Patient verbalize understanding instructions and agreement with plan. Departure Impression Primary Impression: Wound infection after surgery Disposition: HOME, SELF-CARE Condition: Improved Departure-Patient Inst. Decision time for Depature: 02:22 Referrals: [facility]/ANA LILIA (PCP) Primary Care Physician KESHIA LEDEZMA (Family) Primary Care Physician KATELYN RESENDIZ MD Patient Instructions: Wound Infection Add. Discharge Instructions: All discharge instructions reviewed with patient and/or family. Voiced understanding. Take medications as directed. Follow-up with Dr. Resendiz this week for recheck and further evaluation. Call his office in the morning for appointment. Continue home medications as previously prescribed. Return for worse pain, fever, vomiting, weakness, breathing problems, foul-smelling drainage or other concerns as needed. Scripts Clindamycin HCl (Clindamycin HCl) 300 Mg Capsule 300 MG PO QID for 7 Days, #28 CAP Prov: SMITHA OTERO MD 06/12/20 Copy Copies To 1: KATELYN RESENDIZ MD, TIMOTHY D MD Jun 12, 2020 01:20
[2020-06-12 01:22] LABS: BASOPHILS % (AUTO) 0 % (0-10); EOSINOPHILS # (AUTO) 0.1 10^3/uL (0.0-0.3); EOSINOPHILS % (AUTO) 1 % (0-10); HEMATOCRIT 33 % (40-54); HEMOGLOBIN 10.8 G/DL (13.3-17.7); LYMPHOCYTES # (AUTO) 1.2 X 10^3 (1.0-4.0); LYMPHOCYTES % (AUTO) 11 % (12-44); MEAN CORPUSCULAR HEMOGLOBIN 28 PG (25-34); MEAN CORPUSCULAR HGB CONC 32 G/DL (32-36); MEAN CORPUSCULAR VOLUME 85 FL (80-99); MEAN PLATELET VOLUME 9.4 FL (7.4-10.4); MONOCYTES # (AUTO) 0.7 X 10^3 (0.0-1.0); MONOCYTES % (AUTO) 7 % (0-12); NEUTROPHILS # (AUTO) 8.4 X 10^3 (1.8-7.8); NEUTROPHILS % (AUTO) 81 % (42-75); PLATELET COUNT 177 10^3/uL (130-400); WHITE BLOOD COUNT 10.4 10^3/uL (4.3-11.0)
[2020-06-12 01:34] LABS: ALBUMIN 4.2 GM/DL (3.2-4.5); CHLORIDE 101 MMOL/L (98-107); POTASSIUM 3.4 MMOL/L (3.6-5.0); SODIUM 140 MMOL/L (135-145)
[2020-06-12 01:35] LABS: CALCIUM 9.6 MG/DL (8.5-10.1)
[2020-06-12 01:36] LABS: GLUCOSE 122 MG/DL (70-105); TOTAL PROTEIN 7.6 GM/DL (6.4-8.2)
[2020-06-12 01:38] LABS: BILIRUBIN,TOTAL 0.5 MG/DL (0.1-1.0); CARBON DIOXIDE 27 MMOL/L (21-32)
[2020-06-12 01:40] LABS: ALKALINE PHOSPHATASE 69 U/L (40-136); CREATININE SERUM 1.11 MG/DL (0.60-1.30); GFR ESTIMATED > 60
[2020-06-12 01:41] LABS: BUN/CREATININE RATIO 13
[2020-06-12 01:43] LABS: ALANINE AMINOTRANSFERASE 19 U/L (0-55)
[2020-06-12 01:46] LABS: ERYTHROCYTE SEDIMENTATION RATE 68 MM/HR (0-15)
[2020-06-12] MEDS ORDERED: CLINDAMYCIN 150 MG (CLEOCIN) CAP PO STA (02:08)
[2020-06-12 02:23] VITALS: BP 150/76
[2020-06-12] MEDS ORDERED: CLIN300C11 PO (02:24)
== END 2020-06-12 02:27 | disposition home or self-care (01) ==
LOC: EDUNIT# 00:42 → ER 00:44
DX: T81.49XA Infection following a procedure, other surgical site, initial encounter (principal); I10 Essential (primary) hypertension; E11.9 Type 2 diabetes mellitus without complications; Z79.4 Long term (current) use of insulin; Z87.891 Personal history of nicotine dependence
CPT/HCPCS: 36415; 80053; 85025; 85652; 86141; 87070; 87205

== ENCOUNTER 2021-08-01 09:28 | Emergency (ER) | payer MEDICARE, MEDICAID ==
[~2021-08-01] VITALS: Ht 175 cm; Wt 127.0 kg
[~2021-08-01 09:28] MED LIST changes: +CLIN-144 PO
[2021-08-01 09:40] VITALS: BP 183/92
--- NOTE | 2021-08-01 10:04 | ED Hip Pain/Injury ---
General Chief Complaint: Hip/Pelvic Problems Stated Complaint: LEFT HIP PAIN Nursing Triage Note: SEVERE LEFT HIP PAIN X3 DAYS. PT TOOK HIS PRESCRIBED HYDROCODONE AND A MUSCLE RELAXER BEFORE COMING TO THE ER AND IS HAVING A HARD TIME STAYING AWAKE THRU CONVERSTION. Source: patient, family Exam Limitations: clinical condition History of Present Illness Date Seen by Provider: Aug 01, 2021 Time Seen by Provider: 09:50 Initial Comments Patient is a 50-year-old male who presents to the emergency department today with a chief complaint of worsening hip pain over the course of the last 3 days. Patient reportedly took a 10 mg hydrocodone and 10 mg Flexeril prior to coming to the emergency department and is very somnolent/sleeping in the bed, arousable with vigorous stimulation. Patient is able to mumble to me that his pain medicines are working. His provides the majority of the history of present illness, review of systems, past medical family and social history as the patient is intoxicated on his pain medication. She states that he fell out of a camping chair a couple of months ago had a little residual pain and then over the course of the last couple of weeks has started to worsen in intensity. Patient's states in the last 3 days even his daily regimen of 3 10 mg hydrocodone daily and his Lyrica he has not been able to be comfortable. She states he does tend to favor laying on that left hip whether it is on the couch or in the recliner. She states he has been up and down, not sleeping. He finds a little bit of relief when he lays flat on the floor on his right hip. Again no reported recent trauma in the last week. Denies knee pain. She states he always has swelling in his legs. He is a diabetic, his blood sugar was not checked this morning. No other complaints of illness. No rashes reported. When asked where the pain was primarily he points to the area of the greater trochanter of the left hip. All other review of systems reviewed and negative except as stated. Timing/Duration: getting worse Severity: severe Location: hip (L) Method of Injury: unknown Modifying Factors: Improves With Pain Medication Associated Symptoms: trouble walking Allergies and Home Medications Allergies Coded Allergies: No Known Drug Allergies (Unverified , 07/22/18) Patient Home Medication List Home Medication List Reviewed: Yes Alprazolam (Xanax) 1 Mg Tablet, 1 MG PO BID, (Reported) Entered as Reported by: HERMILO CALLAWAY on 07/22/18 111 Cephalexin (Keflex) 500 Mg Capsule, 500 MG PO TID Prescribed by: RAJIV CADENA on 06/01/20 1301 Clindamycin HCl (Clindamycin HCl) 300 Mg Capsule, 300 MG PO QID Prescribed by: SMITHA OTERO on 06/12/20 0224 Cyclobenzaprine HCl (Cyclobenzaprine HCl) 10 Mg Tablet, 10 MG PO TID, (Reported) Entered as Reported by: HERMILO CALLAWAY on 07/22/18 111 Dulaglutide (Trulicity) 1.5 Mg/0.5 Ml Pen.injctr, 1.5 MG SQ WEEK, (Reported) Entered as Reported by: DAHLIA FREDERICK on 05/30/20 1520 Esomeprazole Magnesium (Nexium) 40 Mg Cap, 40 MG PO DAILY, (Reported) Entered as Reported by: HERMILO CALLAWAY on 07/22/18 111 Hydrocodone Bit/Acetaminophen (HYDROcodone/APAP 10/325 TABLET) 1 Each Tablet, 1 EACH PO TID PRN for PAIN-MODERATE, (Reported) Entered as Reported by: HERMILO CALLAWAY on 07/22/18 111 Insulin Aspart (Novolog) 100 Unit/1 Ml Susp, 60 UNIT SQ TIDAC, (Reported) Entered as Reported by: HERMILO CALLAWAY on 07/22/18 111 Lisinopril/Hydrochlorothiazide (Lisinopril-Hctz 20-12.5 mg Tab) 1 Each Tablet, 2 EACH PO DAILY, (Reported) Entered as Reported by: HERMILO CALLAWAY on 07/22/18 111 Metoclopramide HCl (Metoclopramide HCl) 5 Mg Tablet, 5 MG PO TIDAC, (Reported) Entered as Reported by: DAHLIA FREDERICK on 05/30/20 1520 Metoprolol Tartrate (Metoprolol Tartrate) 50 Mg Tablet, 50 MG PO BID, (Reported) Entered as Reported by: HERMILO CALLAWAY on 07/22/18 111 Pregabalin (Lyrica) 100 Mg Capsule, 100 MG PO TID, (Reported) Entered as Reported by: HERMILO CALLAWAY on 07/22/18 1119 Simvastatin (Simvastatin) 20 Mg Tablet, 20 MG PO HS, (Reported) Entered as Reported by: HERMILO CALLAWAY on 07/22/18 1119 Topiramate (Topiramate) 25 Mg Tablet, 25 MG PO BID, (Reported) Entered as Reported by: DAHLIA FREDERICK on 05/30/20 1520 Vortioxetine Hydrobromide (Trintellix) 10 Mg Tablet, 10 MG PO DAILY, (Reported) Entered as Reported by: DAHLIA FREDERICK on 05/30/20 1520 Review of Systems Constitutional: see HPI EENTM: no symptoms reported Respiratory: no symptoms reported Cardiovascular: edema Gastrointestinal: no symptoms reported Genitourinary: no symptoms reported Musculoskeletal: joint pain (left hip) Skin: no symptoms reported All Other Systems Reviewed Negative Unless Noted: Yes Past Ijqwjjh-Qbyjhw-Bvxsrl Hx Patient Social History Substance use?: No Immunizations Up To Date Tetanus Booster (TDap): Unknown Second COVID19 Vaccination [employer]: 07/12 COVID19 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: [employer] Seasonal Allergies Seasonal Allergies: No Past Medical History Surgeries: Yes Orthopedic Respiratory: Yes COPD Currently Using CPAP: No Currently Using BIPAP: No Cardiac: Yes Hypertension Neurological: No Reproductive Disorders: No Sexually Transmitted Disease: No HIV/AIDS: No Genitourinary: No Gastrointestinal: No Musculoskeletal: No Endocrine: Yes Diabetes, Insulin dep HEENT: No Cancer: No Psychosocial: No Integumentary: No Blood Disorders: No Adverse Reaction/Blood Tranf: No (N/A) Physical Exam Vital Signs Vital Signs - First Documented 08/01/21 09:40 Temp 36.3 Pulse 117 Resp 16 B/P (MAP) 183/92 (122) Pulse Ox 91 O2 Delivery Room Air Capillary Refill : Less Than 3 Seconds Height, Weight, BMI Height: 5'7.00" Weight: 285lbs. 0.0oz. 129.213285ga; 41.00 BMI Method:Stated General Appearance: No Apparent Distress, Other (somnolent due to teffects of pain medication and muscle relaxer) HEENT: PERRL/EOMI, Other (scleral injection bilaterally) Cardiovascular: Regular Rate, Rhythm, Normal Peripheral Pulses Respiratory: Lungs Clear, Normal Breath Sounds, No Accessory Muscle Use, No Respiratory Distress Gastrointestinal: Non Tender, Soft Extremity: Normal Capillary Refill, No Calf Tenderness, Pedal Edema, Other (tenderness to palpation left lateral hip joint, patient resists ROM, specifically external rotation, but tolerates flexion of the hip joint to some extent. No knee effusion or erythema or point tenderness of the knee.) Neurologic/Psychiatric: Alert (with vigorous stimulation - but immediately goes back to sleep) Skin: Normal Color, Warm/Dry, Other (no overlying rashes on the skin of the lefthip) Progress/Results/Core Measures Results/Orders Lab Results Laboratory Tests Test 08/01/21 10:48 Range/Units My Orders Orders - FRITZ CERNA MD Accucheck Stat ONCE (08/01/21 10:01) Pelvis With Left Hip 2-3 Views (08/01/21 10:01) Vital Signs/I&O 08/01/21 09:40 Temp 36.3 Pulse 117 Resp 16 B/P (MAP) 183/92 (122) Pulse Ox 91 O2 Delivery Room Air Blood Pressure Mean: 122 Progress Progress Note : Time: 10:50 Progress Note Patient remains sleepy but is more arousable. He is asking for "a shot" for pain although he seems to be quite relaxed at this time. His x-rays have been reviewed and are within normal limits, no evidence of fracture or dislocation. His blood sugar is 320. I recommended multiple different therapies to alleviate the pain in his left hip such as moist heat, qqvt-uam-vnxgsyc lidocaine patches, small ibuprofen dosing. Also recommended that he follow-up with an orthopedic surgeon possibly for hip injections. At this time the patient is cleared for discharge to home. I recommended follow-up as well with primary care regarding his diabetes and prednisone dosing. I am not going to start him on prednisone from here. His is at the bedside is comfortable with this plan of care. She is going to try to pad his hip as he sitting in the recliner so that he does not lay on it as much. All questions are sought and answered. Patient is stable for discharge Diagnostic Imaging Diagonstic Imaging: Xray Plain Films/CT/US/NM/MRI: chest Comments [facility]. [place], [place] NAME: KESHIA CASSIDY [facility] REC#: [id number] PT STATUS: REG ER : 1970 PHYSICIAN: FRITZ CERNA MD ADMIT DATE: 08/01/21/ER Draft Date of Exam:08/01/21 PELVIS WITH LEFT HIP 2-3 VIEWS INDICATION: Fall, hip pain. COMPARISON: None. FINDINGS: Single view of the pelvis and two views of the left hip demonstrate no fracture or dislocation. Articular surfaces are normal. No osseous lesion or foreign body. IMPRESSION: Negative pelvis and left hip. Dictated on workstation # [id number] Dict: 08/01/21 1033 Trans: 08/01/21 1035 [id number] Interpreted by: HORACE QUINTEROS Electronically signed by: Departure Impression Primary Impression: Left hip pain Additional Impression: Hyperglycemia due to type 2 diabetes mellitus Disposition: HOME, SELF-CARE Condition: Stable Departure-Patient Inst. Decision time for Depature: 10:51 Referrals: [facility] (PCP) Primary Care Physician UMA LOPEZ MD (Family) Primary Care Physician SANDY HOOKER MD Patient Instructions: Hip Bursitis (DC) Add. Discharge Instructions: He can have a little ibuprofen, 3 tablets every 8 hours as needed for pain. Always take ibuprofen with food. Do this for no more than 5 days in a row. You can obtain mvhy-icv-xrfnxaw lidocaine patches to place on the area that is painful. This may help tremendously. Also moist heat will take away some of the discomfort. Follow-up with your primary care doctor. You can also follow-up with orthopedics as they may do hip injections to help relieve his pain. I have provided contact information for Dr. Hooker. Come back to the emergency room for any new, concerning or emergent complaints. FRITZ CERNA MD Aug 01, 2021 10:04
--- NOTE | 2021-08-01 10:35 | Diagnostic Imaging Report ---
INDICATION: Fall, hip pain. COMPARISON: None. FINDINGS: Single view of the pelvis and two views of the left hip demonstrate no fracture or dislocation. Articular surfaces are normal. No osseous lesion or foreign body. IMPRESSION: Negative pelvis and left hip. Dictated by: Dictated on workstation # [id number]
== END 2021-08-01 11:00 | disposition home or self-care (01) ==
LOC: EDUNIT# 09:28 → ER 09:32
DX: M25.552 Pain in left hip (principal); E11.65 Type 2 diabetes mellitus with hyperglycemia; I10 Essential (primary) hypertension; J44.9 Chronic obstructive pulmonary disease, unspecified; Z79.4 Long term (current) use of insulin; Z79.899 Other long term (current) drug therapy
CPT/HCPCS: 82947

== ENCOUNTER 2023-02-26 06:04 | Outpatient (CLI) | payer MEDICARE, MEDICAID ==
[~2023-02-26] VITALS: Ht 175.3 cm; Wt 128.8 kg
[~2023-02-26 06:04] MED LIST changes: +CYCL10TA25 PO; -CYCL10TA9 PO
[2023-03-03] MEDS ORDERED: ATOR40TA70 PO (09:12)
[2023-03-03] MEDS ORDERED: ALBU8.5H6 IH (09:12)
[2023-03-03] MEDS ORDERED: LISI10TA25 PO (09:12)
[2023-03-03] MEDS ORDERED: METF-399 PO (09:12)
[2023-03-03] MEDS ORDERED: FURO20TA4 PO (09:12)
[2023-03-03] MEDS ORDERED: ASPI-999 PO (09:12)
[2023-03-03] MEDS ORDERED: VORT20TA PO (09:12)
[2023-03-03] MEDS ORDERED: TMSL.4C PO (09:12)
[2023-03-03] MEDS ORDERED: INSU200I4 SQ (09:12)
[2023-03-03] MEDS ORDERED: FLUT1DIS26 IH (09:12)
[2023-03-03] MEDS ORDERED: SEMA14TA2 PO (09:16)
== END 2023-03-03 09:49 | disposition home or self-care (01) ==
LOC: PREOP 06:04
PROVIDERS: ATTEND Surgery
DX: Z01.818 Encounter for other preprocedural examination (principal)

== ENCOUNTER 2023-03-10 07:41 | Day surgery (SDC) | payer MEDICARE, MEDICAID ==
[~2023-03-10] VITALS: Ht 175 cm; Wt 128.8 kg
[~2023-03-10 07:41] MED LIST changes: +ALBU8.5H6 IH; +ASPI-999 PO; +ATOR40TA70 PO; +FLUT1DIS26 IH; +FURO20TA4 PO; +INSU200I4 SQ; +LISI10TA25 PO; +SEMA14TA2 PO; +TMSL.4C PO; +VORT20TA PO
[2023-03-10] MEDS ORDERED: LACTATED RINGERS 1,000 ML IV STA (07:56)
[2023-03-10] MEDS ORDERED: HURRICAINE EXT TUBE (BENZOCAINE) XX PRN (08:00)
[2023-03-10 08:10] VITALS: BP 132/79
[2023-03-10] MEDS ORDERED: KETAMINE 50 MG/5 ML SYRINGE ONE (09:30)
[2023-03-10] MEDS ORDERED: PROPOFOL INJECTION 50 ML IV ONE (09:30)
[2023-03-10 10:10] VITALS: BP 136/64
--- NOTE | 2023-03-10 10:17 | Progress Note-Post Operative ---
Post-Operative Progess Note Surgeon (s)/Network Support Analyst (s) Surgeon SAE BECKER DO Network Support Analyst: WALDO Nichols student Pre-Operative Diagnosis Chronic Gastritis, Screening colonoscopy Post-Operative Diagnosis Esophageal Varices Esophagitis Gastritis with bleed Gastric Polyp Colon Polyp Diverticulosis Int hemorrhoids Poor prep Procedure & Operative Findings Date of Procedure 03/10/23 Procedure Performed/Findings EGD with biopsy EGD with hot biopsy removal of Gastric polyp Colonoscopy with snare polypectomy PROCEDURE NOTE: After informed consent was obtained, the patient was brought to the endoscopy suite, placed in bed in left lateral decubitus position. He was administered IV sedation by the GLASS VIAL FILLER who then monitored vitals the entire time, heart rate, blood pressure and pulse ox and the scope was inserted down the mouth through the esophagus into the stomach. On the way down, noted what looked like Esophageal varices and then some mild esophagitis at the GE junction, took a picture. Then pushed into the stomach and immediately noted moderate gastritis with signs of bleeding. I pushed past the antrum into the duodenum; duodenum looked good. Pulled back and did a biopsy of the antrum and the body of the stomach. I then retroflexed the scope, saw small Grade II AFS hiatal hernia, took a picture of this. I found a gastric polyp that I elected to remove with hot biopsy, had also taken a picture of this. Finally pulled the scope into the GE junction, took another picture of the GE junction; elected not to do a biopsy here because of the possible varices. Pushed the scope back into the stomach, suctioned all the air out of the stomach. At this point pulled the scope up the esophagus and out the mouth. Switched camera, switched gloves, went down below and started the colonoscopy. Pushed all the way to about [address] in noted the beginning of diverticula and a poor prep. I pushed to the cecum, took a picture of the appendiceal orifice and noted the ileocecal valve. Just before getting there I had found a polyp in the ascending colon that I removed with the snare. Then from the cecum I slowly withdrew the scope insufflating to look circumferentially at the ferrari. Starting in the cecum, up the ascending colon to the hepatic flexure, then down the transverse colon to the splenic flexure, into the descending colon down into the sigmoid. I found a small polyp here and removed it with the snare. Finally into the rectal vault and retroflexed the scope. Took a picture of the internal hemorrhoids. I also saw another large polyp that I removed with the snare. The patient tolerated the procedure and he recovered in the endoscopy suite. Recommended for repeat colonoscopy in 1 year because of the poor prep and the fact I found 3 polyps Anesthesia Type IV sedation by GLASS VIAL FILLER Estimated Blood Loss Estimated blood loss (mL): scant Specimens/Packing Specimens Removed antral bx body of stomach bx Gastric Polyp Asc colon polyp sigmoid polyp rectal polyp SAE BECKER DO Mar 10, 2023 10:16
--- NOTE | 2023-03-10 10:18 | Endoscopy Discharge Instruct ---
Endo Procedure/Findings Findings 1.: Gastritis, Other Findings (Esophageal varices) 2.: Hiatal Hernia 3.: Polyp 4.: Diverticulosis, Internal Hemorrhoids, Other Findings (poor prep) Discharge Instructions - Activity: You might feel a little sleepy until tomorrow. This is due to the medicine you received to relax you. Until tomorrow, you should: NOT drive a car, operate machinery or power tools. NOT drink any alcoholic beverages. NOT make any important decisions or sign importortant papers. Do not return to work until tomorrow, unless otherwise instructed. Resume previous activities tomorrow. Diet: Start by taking liquids. If you tolerate liquids, advance to solid food. 1.: EGD in 1 year 2.: Colonoscopy in 1 year Notify Physician - If you experience excessive bleeding, unusual abdominal pain, fever, or chest pain, contact your doctor immediately. Follow-Up: Other Follow up in my office in one week SAE BECKER DO Mar 10, 2023 10:18
[2023-03-10 10:20] VITALS: BP 144/74
[2023-03-10 10:27] VITALS: BP 144/74
--- NOTE | 2023-03-10 12:25 | Anesthesia-General Post-Op ---
MAC Patient Condition Mental Status/LOC: Same as Preop Cardiovascular: Satisfactory Nausea/Vomiting: Absent Respiratory: Satisfactory Pain: Controlled Complications: Absent Post Op Complications Complications None Follow Up Care/Instructions Patient Instructions None needed. Anesthesiology Discharge Order Discharge Order Patient is doing well, no complaints, stable vital signs, no apparent adverse anesthesia problems. No complications reported per nursing. ESTEBAN TEAGUE CRNA Mar 10, 2023 12:25
== END 2023-03-10 11:21 | disposition home or self-care (01) ==
LOC: ENDO 07:41
PROVIDERS: ATTEND Surgery
DX: Z12.11 Encounter for screening for malignant neoplasm of colon (principal); D12.2 Benign neoplasm of ascending colon; D12.5 Benign neoplasm of sigmoid colon; K62.1 Rectal polyp; K29.51 Unspecified chronic gastritis with bleeding; K21.00 Gastro-esophageal reflux disease with esophagitis, without bleeding; K31.7 Polyp of stomach and duodenum; K31.89 Other diseases of stomach and duodenum; K57.30 Diverticulosis of large intestine without perforation or abscess without bleeding; K64.8 Other hemorrhoids; I85.00 Esophageal varices without bleeding; E11.9 Type 2 diabetes mellitus without complications; E66.01 Morbid (severe) obesity due to excess calories; Z68.41 Body mass index [BMI] 40.0-44.9, adult; F17.220 Nicotine dependence, chewing tobacco, uncomplicated; Z79.4 Long term (current) use of insulin; Z79.84 Long term (current) use of oral hypoglycemic drugs; Z80.0 Family history of malignant neoplasm of digestive organs
CPT/HCPCS: 82947